=== PATIENT | male | born 1960 | race Caucasian/White ===

== ENCOUNTER 2016-12-02 16:55 | Emergency (ER) | payer OTHER ==
[2016-12-02 17:05] VITALS: BP 141/83; PULSE 94; TEMP 98.1; BMI 36.9
[2016-12-02] MEDS ORDERED: KETOROLAC TROMETHAMINE 60 MG/2 ML VIAL ONE ×2 (18:55→23:49)
[2016-12-02] MEDS ORDERED: OXYCODONE/APAP 5/325MG COMBO TABLET ONE (18:55)
[2016-12-02] MEDS ORDERED: KETOROLAC TROMETHAMINE 60 MG/2 ML VIAL IM ONE ×2 (18:59→23:50)
[2016-12-02] MEDS ORDERED: OXYCODONE/APAP 5/325MG COMBO TABLET PO ONE (18:59)
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
[2016-12-02] MEDS ORDERED: METHOCARBAMOL 500 MG TABLET PO ONE (19:54)
[2016-12-02] MEDS ORDERED: diazePAM 5 MG TABLET PO ONE (19:54)
[2016-12-02] MEDS ORDERED: diazePAM 5 MG TABLET ONE (20:07)
[2016-12-02] MEDS ORDERED: METHOCARBAMOL 500 MG TABLET ONE (20:07)
[2016-12-02 22:27] LABS: URINE APPEARANCE CLEAR; URINE BILIRUBIN NEGATIVE (NEGATIVE); URINE BLOOD NEGATIVE (NEGATIVE); URINE COLOR LTYELLOW; URINE GLUCOSE (UA) NEGATIVE (NEGATIVE); URINE KETONE NEGATIVE (NEGATIVE); URINE LEUK ESTERASE NEGATIVE (NEGATIVE); URINE NITRITE NEGATIVE (NEGATIVE); URINE PROTEIN NEGATIVE (NEGATIVE); URINE UROBILINOGEN NEGATIVE E.U./dl (0.2-1.0)
== END 2016-12-03 00:05 | disposition home or self-care (01) ==
LOC: JERFT 16:55 → JER 16:55
PROC: 3E0233Z Introduction of Anti-inflammatory into Muscle, Percutaneous Approach (ICD-10-PCS; principal; 2016-12-02)
DX: M54.5 Low back pain (principal); G89.29 Other chronic pain; I10 Essential (primary) hypertension
CPT/HCPCS: 72070-TC; 72131-TC; 81003; 99283-25

== ENCOUNTER 2017-09-02 11:03 | Emergency (ER) | payer OTHER ==
[2017-09-02 11:12] VITALS: TEMP 98.3; BMI 36.3
[2017-09-02 11:53] LABS: EOS % 3.7 % (0-4.5); HEMATOCRIT 46.2 % (35.4-49); HEMOGLOBIN 14.9 GM/dL (11.7-16.9); LYMPH % 36.8 % (8-40); MCH 28.6 pg (25.7-33.7); MCHC 32.2 g/dl (32.0-35.9); MEAN PLT VOLUME 8.8 fl (7.5-11.1); MONO % 10.7 % (3.8-10.2); NEUT % 47.8 % (42.8-82.8); PLATELET COUNT 252 K/MM3 (134-434); RBC 5.19 M/mm3 (4.00-5.60); RDW 13.6 % (11.9-15.9); WHITE BLOOD COUNT 7.1 K/mm3 (4.0-10.0)
[2017-09-02 12:16] LABS: ALBUMIN 4.3 g/dl (3.4-5.0); ALK PHOS 113 U/L (45-117); ANION GAP 6 (8-16); BILIRUBIN,TOTAL 0.5 mg/dL (0.2-1.0); BLOOD UREA NITROGEN 15 mg/dL (7-18); CALCIUM 8.6 mg/dL (8.5-10.1); CHLORIDE 103 mmol/L (98-107); CO2 28 mmol/L (21-32); CREATININE 1.1 mg/dL (0.7-1.3); GLUCOSE,RANDOM 91 mg/dL (74-106); POTASSIUM 4.3 mmol/L (3.5-5.1); SGOT/AST 25 U/L (15-37); SGPT/ALT 37 U/L (12-78); SODIUM 137 mmol/L (136-145); TOT PROT 7.9 g/dl (6.4-8.2)
--- NOTE | 2017-09-02 12:20 | PDOC ---
History of Present Illness - General Chief Complaint: Palpitations Stated Complaint: CHEST PAIN Time Seen by Provider: 09/02/17 11:19 - History of Present Illness Initial Comments: 09/02/17 12:07 The patient is a 57 year old male with history of hypertension who presents to the ED complaining of palpitations and chest pain that began last night. The patient reports he returned from work last night and developed palpitations and SOB while at home. He states he took his home dose of Benicar and ASA. His symptoms subsided, and he was able to go to sleep. This morning, he again experienced palpitations and left sided, pressure like chest pain. He reports that they are both worse with activity. Pt also reports occasional RLE cramping , though he currently denies any pain or swelling in his legs. He denies nausea , vomiting, or diaphoresis. He denies any recent travel. He denies cough, wheezing, or hemoptysis. 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 Past History - Past Medical History Allergies/Adverse Reactions: Allergies Allergy/AdvReac Type Severity Reaction Status Date / Time No Known Allergies Allergy Verified 09/02/17 11:12 Home Medications: Ambulatory Orders Olmesartan Medoxomil [Benicar -] 40 mg PO DAILY #30 tablet 01/23/15 Aspirin [ASA -] 81 mg PO DAILY 09/02/17 COPD: No HTN: Yes - Suicide/Smoking/Psychosocial Hx Smoking History: Never smoked Have you smoked in the past 12 months: No Hx Alcohol Use: No Drug/Substance Use Hx: No Substance Use Type: None Hx Substance Use Treatment: No Review of Systems - Review of Systems Comments:: 09/02/17 12:08 "GENERAL/CONSTITUTIONAL: No fever or chills. No weakness. HEAD, EYES, EARS, NOSE AND THROAT: No change in vision. No ear pain or discharge. No sore throat. CARDIOVASCULAR: +L chest pain, palpitations. No chest pain or shortness of breath. RESPIRATORY: No cough, wheezing, or hemoptysis. GASTROINTESTINAL: No nausea, vomiting, diarrhea or constipation. GENITOURINARY: No dysuria, frequency, or change in urination. MUSCULOSKELETAL: +RLE cramping, no calf swelling. No neck or back pain. SKIN: No rash NEUROLOGIC: No headache, vertigo, loss of consciousness, or change in strength/ sensation. ENDOCRINE: No increased thirst. No abnormal weight change. HEMATOLOGIC/LYMPHATIC: No anemia, easy bleeding, or history of blood clots. ALLERGIC/IMMUNOLOGIC: No hives or skin allergy. " *Physical Exam - Vital Signs Last Vital Signs Temp Pulse Resp BP Pulse Ox 98.3 F 70 20 140/82 99 09/02/17 11:10 09/02/17 17:40 09/02/17 17:40 09/02/17 17:40 09/02/17 17:40 - Physical Exam Comments: 09/02/17 12:09 "GENERAL: Awake, alert, and fully oriented, in no acute distress HEAD: No signs of trauma EYES: PERRLA, EOMI, sclera anicteric, conjunctiva clear ENT: Auricles normal inspection, hearing grossly normal, nares patent, oropharynx clear without exudates. Moist mucosa NECK: Nontender, no stepoffs, Normal ROM, supple, no lymphadenopathy, JVD, or masses LUNGS: Breath sounds equal, clear to auscultation bilaterally. No wheezes, and no crackles HEART: Regular rate and rhythm, normal S1 and S2, no murmurs, rubs or gallops ABDOMEN: Soft, nontender, normoactive bowel sounds. No guarding, no rebound. No masses EXTREMITIES: Normal range of motion, no edema. No clubbing or cyanosis. No cords, erythema, or tenderness NEUROLOGICAL: Cranial nerves II through XII intact. 5/5 strength and sensation in all extremities, Normal speech, normal gait SKIN: Warm, Dry, normal turgor, no rashes or lesions noted. " Heart Score/ECG Review - History History: Slightly suspicious - Electrocardiogram EKG: Normal - Age Age: 45-65 - Risk Factors Risk Factors Heart Score: Yes Hx Hypertension, Yes Hx Obesity Based on the list above the patient has:: 1-2 risk factors - Troponin Troponin: </= normal limit - Score Heart Score - Total: 2 - ECG Impressions Comment:: 09/02/17 12:09 NSR, no ZECHARIAH/STDs, no TWIs, axis wnl, intervals wnl ED Treatment Course - LABORATORY CBC & Chemistry Diagram: 09/02/17 11:42 09/02/17 11:42 - ADDITIONAL ORDERS Additional order review: Laboratory Results 09/05/17 05:39 POC Glucometer 215 09/05/17 09/02/17 05:39 11:42 RBC 5.19 MCV 89.0 MCHC 32.2 RDW 13.6 MPV 8.8 Neutrophils % 47.8 Lymphocytes % 36.8 Monocytes % 10.7 H Eosinophils % 3.7 Basophils % 1.0 POC Glucometer 215 - RADIOLOGY Radiology Studies Ordered: Category Date Time Status CHEST PA & LAT [RAD] Stat Radiology 09/02/17 11:44 Completed Medical Decision Making - Medical Decision Making 09/02/17 12:09 57 M with chest pain and SOB since last night. Pt with nonischemic EKG, making ACS unlikely. Given pt's history of recent RLE cramps, will send ddimer to r/o PE, though pt has normal vitals and no clinical signs of DVT. - Labs, trop, Ddimer - CXR 09/02/17 16:02 Ddimer negative, trop negative CXR clear. Pt reassessed - now feels much better. Pt is well appearing, vitals normal, clinically stable for DC. I discussed the physical exam findings, ancillary test results and final diagnoses with the patient. I answered all of the patient's questions. The patient was satisfied with the care received and felt comfortable with the discharge plan and treatment plan. The patient agrees to follow up with the primary care physician within 24-72 hours. *DC/Admit/Observation/Transfer Diagnosis at time of Disposition: Chest pain - Discharge Dispostion Disposition: HOME - Referrals Referrals: Ghanshyam Christianson MD [Staff Physician] - - Patient Instructions Printed Discharge Instructions: DI for Atypical Chest Pain Additional Instructions: Please follow up with a customer security clerk within 1 week for further evaluation of your chest pain. Even though your tests today were normal, your chest pain may still be related to your heart. If you experience any worsening pain, shortness of breath, palpitations, or any other concerning symptoms, return to the ER immediately. Otherwise, follow up with your primary doctor within 48 hours. - Post Discharge Activity - Attestations Physician Attestion: 09/02/17 16:07 I, Dr. Juan C Epstein MD, attest that this document has been prepared under my direction and personally reviewed by me in its entirety. I further attest, that it accurately reflects all work, treatment, procedures and medical decision -making performed by me.
[2017-09-02 14:05] LABS: N-TERMINAL BNP 30.58 pg/ml (5-125)
[2017-09-02 18:19] VITALS: BP 140/82; PULSE 70
--- NOTE | 2017-09-03 11:34 | EKG ---
Test Reason : Blood Pressure : / mmHG Vent. Rate : 066 BPM Atrial Rate : 066 BPM P-R Int : 160 ms QRS Dur : 106 ms QT Int : 368 ms P-R-T Axes : 034 -16 024 degrees QTc Int : 385 ms NORMAL SINUS RHYTHM NORMAL ECG WHEN COMPARED WITH ECG OF 23-JAN-2015 08:21, NO SIGNIFICANT CHANGE WAS FOUND Confirmed by LEONORA ARMSTRONG MD ([id number]) on 09/03/2017 11:34:22 AM Referred By: Confirmed By:LEONORA ARMSTRONG MD
== END 2017-09-02 17:40 | disposition home or self-care (01) ==
LOC: JER 11:03
DX: R07.89 Other chest pain (principal); I10 Essential (primary) hypertension
CPT/HCPCS: 36415; 71046-TC; 80053; 82550; 82553; 82962; 83880; 84484; 85025; 85379; 93005; 93010; 99284-25

== ENCOUNTER 2018-09-15 14:39 | Emergency (ER) | payer OTHER ==
[2018-09-15 14:54] VITALS: TEMP 97.8
[2018-09-15] MEDS ORDERED: morphine CARPU-JECT 2 MG/1 ML DISP.SYRIN IVPUSH ONE (15:04)
[2018-09-15] MEDS ORDERED: ONDANSETRON 4 MG/2 ML VIAL IVPUSH ONE (15:04)
[2018-09-15] MEDS ORDERED: SODIUM CHLORIDE 0.9% 1000 ML INFUS.BAG IV ONE (15:04)
[2018-09-15] MEDS ORDERED: DIPHTH,PERTUSS(ACELL),TET 0.5 ML DISP.SYRIN IM ONE ×2 (15:05→15:14)
[2018-09-15] MEDS ORDERED: MORPHINE SULFATE 2 MG/ML VIAL ONE (15:14)
[2018-09-15] MEDS ORDERED: ONDANSETRON 4 MG/2 ML VIAL ONE (15:14)
[2018-09-15 15:17] LABS: BASO % 0.9 % (0-2.0); HEMATOCRIT 41.6 % (35.4-49); HEMOGLOBIN 14.3 GM/dL (11.7-16.9); LYMPH % 33.2 % (8-40); MCH 30.5 pg (25.7-33.7); MCHC 34.4 g/dl (32.0-35.9); MEAN CELL VOLUME 88.7 fl (80-96); MEAN PLT VOLUME 9.5 fl (7.5-11.1); MONO % 10.6 % (3.8-10.2); NEUT % 52.3 % (42.8-82.8); PLATELET COUNT 236 K/MM3 (134-434); RBC 4.69 M/mm3 (4.00-5.60); RDW 13.2 % (11.9-15.9); WHITE BLOOD COUNT 7.8 K/mm3 (4.0-10.0)
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
[2018-09-15 15:31] LABS: INR 1.01 (0.83-1.09); PROTHROMBIN TIME (PATIENT) 11.9 SEC (9.7-13.0)
[2018-09-15 15:34] LABS: ACTIVATED PTT 29.1 SECONDS (25.2-36.5)
[2018-09-15 15:42] LABS: ALK PHOS 105 U/L (45-117); ANION GAP 7 MMOL/L (8-16); BILIRUBIN,TOTAL 0.3 mg/dL (0.2-1); BLOOD UREA NITROGEN 17 mg/dL (7-18); CALCIUM 8.8 mg/dL (8.5-10.1); CHLORIDE 104 mmol/L (98-107); CO2 29 mmol/L (21-32); CREATININE 1.3 mg/dL (0.55-1.3); GLUCOSE,RANDOM 86 mg/dL (74-106); LIPASE 260 U/L (73-393); POTASSIUM 4.1 mmol/L (3.5-5.1); SGOT/AST 29 U/L (15-37); SGPT/ALT 36 U/L (13-61); SODIUM 140 mmol/L (136-145); TOT PROT 7.2 g/dl (6.4-8.2)
[2018-09-15 16:55] VITALS: BP 123/89; PULSE 82
[2018-09-15 17:12] LABS: URINE APPEARANCE CLEAR; URINE BILIRUBIN NEGATIVE (<2.0 mg/dL); URINE COLOR LTYELLOW; URINE GLUCOSE (UA) NEGATIVE (NEGATIVE); URINE KETONE NEGATIVE (NEGATIVE); URINE LEUK ESTERASE NEGATIVE (NEGATIVE); URINE NITRITE NEGATIVE (NEGATIVE); URINE PROTEIN NEGATIVE (NEGATIVE)
--- NOTE | 2018-09-16 19:07 | EKG ---
Test Reason : Blood Pressure : / mmHG Vent. Rate : 091 BPM Atrial Rate : 091 BPM P-R Int : 150 ms QRS Dur : 096 ms QT Int : 344 ms P-R-T Axes : 023 -25 017 degrees QTc Int : 423 ms NORMAL SINUS RHYTHM CANNOT RULE OUT ANTERIOR INFARCT , AGE UNDETERMINED ABNORMAL ECG WHEN COMPARED WITH ECG OF 07-MAR-2018 19:11, NO SIGNIFICANT CHANGE WAS FOUND Confirmed by JESUS WILDER MD ([id number]) on 09/16/2018 7:06:57 PM Referred By: Confirmed By:JESUS WILDER MD
== END 2018-09-15 18:21 | disposition home or self-care (01) ==
LOC: JER 14:39
PROC: 3E0234Z Introduction of Serum, Toxoid and Vaccine into Muscle, Percutaneous Approach (ICD-10-PCS; principal; 2018-09-15)
PROC: 3E033NZ Introduction of Analgesics, Hypnotics, Sedatives into Peripheral Vein, Percutaneous Approach (ICD-10-PCS; 2018-09-15)
PROC: 3E033GC Introduction of Other Therapeutic Substance into Peripheral Vein, Percutaneous Approach (ICD-10-PCS; 2018-09-15)
DX: G89.11 Acute pain due to trauma (principal); S39.81XA Other specified injuries of abdomen, initial encounter; M54.5 Low back pain; M25.521 Pain in right elbow; M79.632 Pain in left forearm; W22.8XXA Striking against or struck by other objects, initial encounter; Y93.89 Activity, other specified; Y92.69 Other specified industrial and construction area as the place of occurrence of the external cause; Y99.0 Civilian activity done for income or pay; I10 Essential (primary) hypertension
CPT/HCPCS: 36415; 70450-TC; 71045-TC-FY; 72125-TC; 72131-TC; 73070-TC-RT-FY; 73090-TC-LT-FY; 74177-TC; 80053; 81003; 83605; 83690; 85025; 85610; 85730; 86850; 86900; 86901; 90715; 93005; 93010; 99284-25; J7030

== ENCOUNTER 2021-05-05 16:31 | Emergency (ER) | payer OTHER ==
[2021-05-05 16:58] VITALS: BMI 34.4
[2021-05-05] MEDS ORDERED: FAMOTIDINE 20 MG/50 ML IVPB 20 MG/50 ML MG IVPB ONE ×2 (18:10→18:28)
[2021-05-05] MEDS ORDERED: MAG HYDROX/AL HYDROX/SIMETH -MYLANTA- ORAL SUSPENSION PO ONE (18:10)
[2021-05-05] MEDS ORDERED: SODIUM CHLORIDE 0.9% 500 ML INFUS.BAG IV ONE (18:13)
[2021-05-05] MEDS ORDERED: ACETAMINOPHEN 1000 MG/100 ML VIAL (NON FORMULARY) IVPB ONE (18:14)
[2021-05-05] MEDS ORDERED: ACETAMINOPHEN INJECTION 100 ML IVPB ONE (18:27)
[2021-05-05] MEDS ORDERED: MAG HYDROX/AL HYDROX/SIMETH 30 ML UNIT-DOSE CUP ONE (18:28)
[2021-05-05 19:33] LABS: BASO % 0.5 % (0-2.0); EOS % 2.1 % (0-4.5); HEMATOCRIT 43.1 % (35.4-49); HEMOGLOBIN 14.6 GM/dL (11.7-16.9); MCH 29.2 pg (25.7-33.7); MCHC 33.9 g/dl (32.0-35.9); MEAN CELL VOLUME 86.1 fl (80-96); MEAN PLT VOLUME 8.9 fl (7.5-11.1); NEUT % 63.4 % (42.8-82.8); PLATELET COUNT 291 10^3/uL (134-434); RDW 13.3 % (11.9-15.9); WHITE BLOOD COUNT 8.7 K/mm3 (4.0-10.0)
[2021-05-05 19:50] LABS: ALBUMIN 4.1 g/dl (3.4-5.0); CALCIUM 9.3 mg/dL (8.5-10.1)
[2021-05-05 19:51] LABS: BLOOD UREA NITROGEN 14.2 mg/dL (7-18)
[2021-05-05 19:53] LABS: CREATININE 0.9 mg/dL (0.55-1.3)
[2021-05-05 19:55] LABS: BILIRUBIN,TOTAL 0.4 mg/dL (0.2-1); TOT PROT 7.7 g/dl (6.4-8.2)
[2021-05-05 22:53] VITALS: BP 117/82; PULSE 76; TEMP 97.9
== END 2021-05-05 22:54 | disposition home or self-care (01) ==
LOC: JER 16:31
PROC: 3E0333Z Introduction of Anti-inflammatory into Peripheral Vein, Percutaneous Approach (ICD-10-PCS; principal; 2021-05-05)
PROC: 3E033GC Introduction of Other Therapeutic Substance into Peripheral Vein, Percutaneous Approach (ICD-10-PCS; 2021-05-05)
DX: R10.9 Unspecified abdominal pain (principal); R63.0 Anorexia
CPT/HCPCS: 36415; 71046-TC-FY; 74177-TC; 80053; 83690; 85025; 99285-25; J0131; Q9967

== ENCOUNTER 2021-09-21 16:43 | Emergency (ER) | payer OTHER ==
[2021-09-21 17:09] VITALS: BP 129/74; PULSE 87; TEMP 98.3; BMI 34.7
[2021-09-21] MEDS ORDERED: IBUPROFEN 600 MG TABLET (FP) PO ONE ×2 (17:18→17:27)
== END 2021-09-21 18:05 | disposition home or self-care (01) ==
LOC: JERFT 16:43
DX: M25.561 Pain in right knee (principal)
CPT/HCPCS: 73562-TC-RT-FY; 99283-25

== ENCOUNTER 2022-12-26 16:26 | Emergency (ER) | payer OTHER ==
[2022-12-26 17:13] VITALS: BP 124/75; PULSE 77; RESP 20; TEMP 98; BMI 43.9
[2022-12-26] MEDS ORDERED: SODIUM CHLORIDE 1,000 ML IV STA (20:49)
[2022-12-26] MEDS ORDERED: MAG HYDROX/AL HYDROX/SIMETH 30 ML UNIT-DOSE CUP PO ONE (22:13)
[2022-12-26] MEDS ORDERED: MAG HYDROX/AL HYDROX/SIMETH 30 ML UNIT-DOSE CUP ONE (22:22)
[2022-12-26 22:34] LABS: EOS % 3.1 % (0-4.5); HEMATOCRIT 41.8 % (35.4-49); HEMOGLOBIN 13.9 GM/dL (11.7-16.9); LYMPH % 31.8 % (8-40); MCH 29.1 pg (25.7-33.7); MCHC 33.3 g/dl (32.0-35.9); MEAN CELL VOLUME 87.6 fl (80-96); MEAN PLT VOLUME 9.1 fl (7.5-11.1); MONO % 8.2 % (3.8-10.2); NEUT % 55.9 % (42.8-82.8); PLATELET COUNT 250 10^3/uL (134-434); RBC 4.77 M/mm3 (4.00-5.60); RDW 13.8 % (11.9-15.9); WHITE BLOOD COUNT 7.6 K/mm3 (4.0-10.0)
[2022-12-26 22:46] LABS: POTASSIUM 4.8 mmol/L (3.5-5.1)
[2022-12-26 22:48] LABS: ALBUMIN 4.1 g/dl (3.4-5.0); CALCIUM 9.2 mg/dL (8.5-10.1)
[2022-12-26 22:49] LABS: BLOOD UREA NITROGEN 18.5 mg/dL (7-18)
[2022-12-26 22:52] LABS: BILIRUBIN,TOTAL 0.6 mg/dL (0.2-1); CREATININE 1.1 mg/dL (0.55-1.3); TOT PROT 7.6 g/dl (6.4-8.2)
[2022-12-27] MEDS ORDERED: FAMOTIDINE 20 MG TABLET PO SCH (10:00)
== END 2022-12-27 00:59 | disposition home or self-care (01) ==
LOC: JER 16:26
DX: I10 Essential (primary) hypertension (principal); R07.89 Other chest pain
CPT/HCPCS: 36415; 71046-TC-FY; 80053; 84484; 85025; 93005; 93010; 99285-25